=== PATIENT | female | born 1945 | race Caucasian/White ===

== ENCOUNTER 2019-07-24 01:01 | Outpatient (CLI) | payer MEDICARE, OTHER, SELFPAY ==
--- NOTE | 2019-07-24 16:05 | DI.DEXA_ITS ---
EXAM: XR DEXA BONE DENSITY W/WO TALISHA INDICATION: OSTEOPOROSIS W/O CURRENT PATHOLOGICAL FRACTURE, M81.0, F/U OSTEOPENIA. COMPARISON: No exams were available for comparison FINDINGS: The TALISHA image shows no evidence of compression fractures. The bone mineral density measurements of the lumbar spine correspond to a total T-score of -0.8, in the normal range. Bone mineral density me asurements of the left hip correspond to a total T-score of -1.7 and a femoral neck T-score -2.6, con sistent with osteoporosis. The left forearm bone mineral density measurements correspond to a T-scor e in the distal third of -1.7, in the osteopenic range. IMPRESSION: Normal bone mineral density of the lumbar spine. Osteoporosis of the left hip and osteopenia of left forearm.
== END 2019-07-24 01:21 ==
PROVIDERS: PCP Nurse Practitioner Family; Visit Provider Obstetrics & Gynecology
DX: M81.0 Age-related osteoporosis without current pathological fracture (principal); M85.88 Other specified disorders of bone density and structure, other site
CPT/HCPCS: 77080

== ENCOUNTER 2019-08-20 08:07 | Outpatient (CLI) | payer MEDICARE, OTHER, SELFPAY ==
[2019-08-20 09:47] LABS: TSH (W/Ref FT4) 1.63 uIU/mL (0.36-3.74)
[2019-08-20 13:50] LABS: Anion Gap 10.2 mmol/L (3-11); BUN 9 mg/dL (7-18); CO2 27.8 mmol/L (21.0-32.0); CREATININE 0.65 mg/dL (0.55-1.02); Calcium 9.3 mg/dL (8.5-10.1); Calculated LDL 144 mg/dL; Chloride 100 mmol/L (98-107); Cholesterol 264 mg/dL (<200); Glucose 99 mg/dL (74-106); HDL Cholesterol 99 mg/dL (40-60); Potassium 4.2 mmol/L (3.5-5.1); Sodium 138 mmol/L (136-145); Triglyceride 105 mg/dL (<150)
== END 2019-08-20 08:27 ==
PROVIDERS: PCP Nurse Practitioner Adult Health; Visit Provider Nurse Practitioner Adult Health
DX: M81.0 Age-related osteoporosis without current pathological fracture (principal); Z13.29 Encounter for screening for other suspected endocrine disorder; Z13.1 Encounter for screening for diabetes mellitus; E78.49 Other hyperlipidemia
CPT/HCPCS: 36415; 80048; 80061; 84443

== ENCOUNTER → 2022-07-28 02:46 | Outpatient (CLI) | payer MEDICARE, OTHER, SELFPAY ==
--- NOTE | 2022-07-28 | DI.DEXA_ITS ---
Exam(s) XR DEXA BONE DENSITY W/WO TALISHA EXAM: XR DEXA BONE DENSITY W/WO TALISHA CLINICAL HISTORY: F/U OSTEOPOROSIS, M81.0 TECHNIQUE: COMPARISON: CR XR DEXA BONE DENSITY W/WO TALISHA from 07/24/2019 FINDINGS: DEXA scan was performed according to the usual protocol. Please see the accompanying data sheets. Findings for left hip scanning are T-score -1.5 with left femoral neck T-score -2.6. Prior examinati on July 2019 showed left hip T-score -1.7. Lumbar spine scanning shows T-score -0.5, prior examination of 2018 showed lumbar T-score -0.8. Left forearm scanning shows T-score -2.0, prior examination of 2016 showed T-score -1.7. IMPRESSION: Measurements are consistent with osteoporosis according to the WHO criteria. The lateral vertebral s canogram shows no evidence of a vertebral compression fracture. RADIATION DOSE DELIVERED: Total DLP
== END ==
PROVIDERS: PCP Nurse Practitioner Adult Health; Visit Provider Obstetrics & Gynecology
DX: M81.0 Age-related osteoporosis without current pathological fracture (principal)
CPT/HCPCS: 77080

== ENCOUNTER 2022-10-25 11:41 | Day surgery (SDC) | payer MEDICARE, OTHER, SELFPAY ==
[2022-10-25 11:44] VITALS: BP 158/68; PULSE 78; RESP 16; TEMP 36.5; O2SAT 98
[2022-10-25] MEDS: Tropicam./Phenyleph. (1/2.5%) 5 ML BTL OD ×3 (11:56→12:04)
--- NOTE | 2022-10-25 12:07 | W.ANESPRE ---
General Info Date of Service Date Performed: 10/25/22 Height: 5 ft 4 in Weight: 53.8 kg Body Mass Index (BMI): 20.3 Surgical Procedure: Operation Date: 10/25/22 12:55 Proposed Procedure Side Surgeon p Cataract Extraction with IOL Implant w/ISTENT Right Jose Gómez MD Meds Allergies and Home Medications Allergies Allergy/AdvReac Type Severity Reaction Status Date / Time No Known Allergies Allergy Unverified 10/25/22 11:25 Home Medication Medication Instructions Recorded multivitamin (Daily Multi-Vitamin 1 ea PO DAILY 01/20/18 tablet) calcium 166.75 mg-vit D3 166.75 166.75 mg PO DAILY 01/23/18 unit-vit C-vit K2-minerals capsule (Bone Essentials) cholecalciferol (vitamin D3) 75 3,000 unit PO DAILY 01/23/18 mcg (3,000 unit) tablet aspirin 325 mg tablet 325 mg PO DAILY 03/24/18 Current Visit Medications: Current Medications Generic Name Dose Route Start Last Admin Trade Name Freq PRN Reason Stop Dose Admin Acetaminophen 1,000 mg 10/25/22 06:00 Acetaminophen 500 Mg Tab PO Q4H PRN PRN Miscellaneous Medication 0 ml 10/25/22 06:00 10/25/22 12:04 Tropicam./Phenyleph. (1/2.5%) 5 Ml Btl OD 1 drp DIRECTED QUINTIN Administration Miscellaneous Medication 0 ml 10/25/22 06:00 Prednisolone 1%, Moxifloxacin 0.5%, Nepafenac 0.1% 5ml Btl OD DIRECTED QUINTIN Tetracaine HCl 0 ml 10/25/22 06:00 Tetracaine 0.5% 4 Ml Btl OD DIRECTED QUINTIN PFSH Active Problems Active Problems: Problem Status Onset Code Cortical cataract of right eye H26.9 Nuclear age-related cataract, right eye H25.11 Elevated BP without diagnosis of hypertension R03.0 Cataracts, bilateral H26.9 Hyperlipidemia E78.5 Age-related osteoporosis without current pathological fracture 12/22/17 M81.0 Medical History Medical History Dyspareunia in female (12/22/17) Resolved with arrangement with Low back pain (12/22/17) PT, daily exercises maintains Scoliosis Surgical History Surgical History Appendectomy Colonoscopy - MAC 2007 Colonoscopy MAC (04/11/18) Dental root implant present (~2014) x2 Tobacco Smoking/Tobacco Use Status: Former Tobacco Use Alcohol Alcohol Intake: never Substance Use Substance use: Never Substance use type: does not use Prental History History Para 0 Hx # Term Pregnancies Multiple births Hx # Pregnancies Ectopic pregnancies AB induced Hx Number of Living Children AB spontaneous Vital Signs and Lab Results Vital Signs Most Recent Vital Signs in EMR: Most Recent Vital Signs Temp Pulse Resp BP Pulse Ox 36.5 C 78 16 158/68 H 98 10/25/22 11:44 10/25/22 11:44 10/25/22 11:44 10/25/22 11:44 10/25/22 11:44 Lab Results Blood Type / Crossmatch: No Data to Display Complete Blood Count: No Data to Display Complete Metabolic Panel: No Data to Display Liver Function Panel: No Data to Display Coagulation Panel: No Data to Display Cardiac Panel: No Data to Display Arterial Blood Gas: No Data to Display Venous Blood Gas: No Data to Display Pancreas Panel: No Data to Display Thyroid Panel: No Data to Display Infectious Disease: No Data to Display Blood Cultures: No Data to Display Toxicology Panel: No Data to Display Anesthesia Assessment and Plan Anesthesia History Personal History: No History of Anesthesia Complications Family History: No Family History of Anesthesia Complications Exercise Tolerance Exercise Tolerance: Metabolic Equivalents>4 Pertinent Negatives Pertinent Negatives: No Symptoms of GERD, No Major Cardiovascular Symptoms or Complaints, No Major Pulmonary Symptoms or Complaints and No History of CVA/TIA Cardiac & Pulmonary Exam Cardiac Exam: Normal S1/S2 Heart Sounds Pulmonary Exam: Clear Bilateral Breath Sounds Implantable Cardiac Device Does patient have a Pacemaker or an ICD?: No Airway Exam Known Difficult Airway: No Mallampati Class: 1 Mouth Opening: Normal (> 3cm) Thyromental Distance: Greater than 3 cm Neck Range of Motion: Full ROM Neck Circumference: Normal Teeth Condition: Normal Dentition ASA Classification ASA Score: ASA 2 Emergency Case?: No NPO Status NPO Status: NPO Clears >2 hours, Solids >8 hours Anesthesia Plan Resuscitation Status: Full Code Anesthesia Technique: MAC Anesthesia Airway Planned: Natural Airway Monitors Used: Standard Monitors
[2022-10-25 12:09] VITALS: BMI 20.3
[2022-10-25] MEDS: Tetracaine 0.5% 4 ML BTL OD (13:14)
[2022-10-25] MEDS: Balanced Salt Soln.-PLUS 500 ML BAG (13:28)
[2022-10-25] MEDS: Lidocaine 1% Pres-Free 5 ML VIAL (13:29)
[2022-10-25] MEDS: Povidone-Iodine Ophth 30 ML BTL (13:30)
[2022-10-25] MEDS: Phenylephrine/Lidocaine (15/10) MG/ML 1 ML VIAL (13:30)
[2022-10-25] MEDS: Duovisc Viscoelastic System EACH 1 EACH (13:31)
--- NOTE | 2022-10-25 13:54 | W.PM.DSUDISC ---
Date of service: 10/25/22 Time of Service: 13:54 Discharge Plan Disposition Patient Disposition: Home Discharge Details Attending Provider: Jose Gómez Primary Care Provider: Daja Mancilla Home Meds and New Rx's Prescriptions: No Action multivitamin [Daily Multi-Vitamin] 1 EACH tablet 1 ea PO DAILY cholecalciferol (vitamin D3) 3,000 UNIT tablet 3,000 unit PO DAILY Bone Essentials 166.75 MG capsule 166.75 mg PO DAILY aspirin 325 MG tablet 325 mg PO DAILY Discharge Instructions Stand Alone Forms: Post-op Topical Cataract, Colleen Sheffield (DSU) Discharge Orders Discharge Orders: Discharge Order (Routine); Ordered 10/25/22 Ordered By: Jose Gómez DS: Diagnosis Discharge Diagnosis (1) Cortical cataract of right eye: Status: Resolved (2) Nuclear age-related cataract, right eye: Status: Resolved (3) Primary open angle glaucoma (POAG) of right eye, mild stage: Status: Chronic
[2022-10-25 13:55] VITALS: BP 107/71; PULSE 68; RESP 16; TEMP 36.7; O2SAT 99
--- NOTE | 2022-10-25 13:57 | W.PM.OP ---
Date of service: 10/25/22 Time of Service: 13:57 Operative Note Operative Note DATE OF PROCEDURE: 10/25/22 PRE-OP DIAGNOSIS: Nuclear/cortical cataract, right eye Primary open-angle glaucoma, right eye, mild stage POST-OP DIAGNOSIS: same PROCEDURE: 1. Cataract extraction using phacoemulsification with intraocular lens implant, right eye 2. Insertion of multiple anterior segment aqueous drainage devices (Glaukos iStent inject x 2) into trabecular meshwork, right eye SURGEON: Jose Gómez ANESTHESIA TYPE: Local By Surgeon and MAC Refer to Anesthesia Record PATHOLOGY: none sent COMPLICATIONS: None Patient was transported to: same day Patient's condition: stable Implants: 1. [employer] Vision Tecnis Eyhance DIB00 intraocular lens 2. Glaukos iStent inject trabecular micro-bypass stent x 2 Indications: 1. Progressive decreased vision due to cataract, right eye 2. Primary open angle glaucoma, right eye Procedure Description: CATARACT SURGERY OPERATIVE REPORT PREOPERATIVE DIAGNOSIS: Nuclear/cortical cataract, right eye Primary open-angle glaucoma, right eye, mild stage POSTOPERATIVE DIAGNOSIS: Same OPERATION: 1. Cataract extraction using phacoemulsification with posterior chamber intraocular lens implant, right eye. 2. Insertion of multiple anterior segment aqueous drainage devices (Glaukos iStent inject x 2) into trabecular meshwork, right eye IOL: IOL Import Export Agent/Model: [employer] Tecnis Eyhance DIB00 IOL Power: + 21.0 diopters IOL Serial Number: [id number] Optic Diameter: 6.0mm Haptic/Overall Diameter: 13.0mm PHACO INFO: Lopez [employer]ion Vision System with OZil and Active Fluidics Cumulative Dispersed Energy (CDE): 5.77 seconds TRABECULAR MICRO-BYPASS STENT INFO: Glaukos iStent inject x 2 Reference Number: G2-[id number] Serial Number: [id number] US [id number] SURGEON: Jose Gómez MD, KAEL ANESTHESIA: Monitored Anesthesia Care (MAC), with local sub-tenon's anesthetic infiltration COMPLICATIONS: None SPECIMENS: None INDICATIONS FOR PROCEDURE: The patient is a 76-year-old lady with history of significant a stigmatism of the right eye as well as mild primary open-angle glaucoma. She has developed a symptomatic nuclear/cortical cataract in the right eye. The option of cataract surgery was offered to the patient and she felt she was symptomatic enough that she wished to proceed. In addition, she desired glaucoma stent procedure to reduce intraocular pressure and dependency on topical medication. PROCEDURE: The correct surgical eye was identified and marked as the right eye and the pupil was dilated in the preoperative area using mydriatics and cycloplegics. The dilated pupil size was 6.0 mm. Oral sedation was administered in the form of an Imprimis MKO Melt (midazolam 3mg/ketamine 25mg/ondansetron 2mg). The patient was brought to the operating room where cardiopulmonary monitoring was instituted and surgical time-out was performed, confirming the correct operative eye and IOL power. Topical anesthesia was administered and ophthalmic povidone-iodine 5% was instilled into the conjunctival fornices. Lidocaine gel was applied to the cornea and the america-ocular area was prepped with Betadine 10% solution and draped in the usual sterile fashion for intraocular surgery, including an aperture drape. A Tegaderm transparent film dressing was cut in half and used to cover the lashes and lid margins. Care was taken to sequester the lashes and lid margins under the Tegaderm dressing. A lid speculum was placed between the lids of the operative eye and the Lopez Lux[employer] Revalia operating microscope was maneuvered into position. Harman scissors were then used to make a conjunctival buttonhole approximately 6mm posterior to the limbus in the inferonasal quadrant. Blunt dissection was carried out to expose bare sclera, and a blunt-tipped sub-tenon?s anesthesia cannula was introduced and passed posteriorly along the globe where non-preserved plain lidocaine was injected into posterior sub-Tenon?s space. A sideport knife was used to make a paracentesis port inferiortemporally. Intraocular phenylephrine/lidocaine was injected into the anterior chamber. The anterior chamber was then filled with viscoelastic. A 2.4mm keratome knife was used to construct a 2-plane near-clear corneal tunnel extending 2.0mm into clear cornea superiortemporally. . A flap was raised on the anterior capsule and capsulorhexis forceps were used to complete a continuous curvilinear capsulorhexis of 5.0 mm. Balanced salt solution was then used to perform cortical cleaving hydrodissection and nuclear hydrodelineation until the lens could be freely rotated within the capsular bag. The lens nucleus was then disassembled and removed within the capsular bag and iris plane using phacoemulsification. Residual cortical material was removed using the 45-degree angled silicone I/A tip with 0.3mm port. The posterior capsule was carefully polished to remove as much residual lens epithelial cells as safely possible. The capsular bag was then inflated and the anterior chamber deepened with viscoelastic. The lens implant described above was inserted into the capsular bag using the ILEANA Melcher [place] Injector. A Kuglen hook was used to dial the IOL into position. The anterior chamber was then slightly over-filled with viscoelastic. The microsope and the patient's head were tilted into the ideal position for viewing of the anterior chamber angle. Viscoelastic was placed on the cornea followed by a surgical gonionlens, and the anterior chamber angle landmarks were identified. The [employer] iStent inject handpiece was introduced into the anterior chamber and the insertion sleeve was retracted once the injector was distal to the pupillary margin. The trocar was advanced through the central portion of the trabecular meshwork and into the back wall of Schlemm's canal in the inferonasal quadrant, with care taken to ensure the micro-insertion tube was perpendicular to the trabecular meshwork. The trabecular meshwork was lightly dimpled and the stent was injected without difficulty. The same procedure was then performed in the superiornasal quadrant. Both stents were then examined and noted to be in good position within the trabecular meshwork. The microscope and the patients head were returned to the normal coaxial position. Viscoelatic was then removed from the anterior chamber using the I/A handpiece. The lens implant was noted to center nicely within the capsular bag. The incisions were stromally hydrated, and the anterior chamber was reformed using BSS. Then 0.5cc of moxifloxacin 1.0mg/ml were injected into the capsular bag and anterior chamber. The incisions were checked with a Weck spear and found to be secure. Several drops of ophthalmic povidone-iodine 5% were then applied to the eye followed by two drops of Imprimis combination prednisolone/moxifloxacin/nepafenac solution. The drapes were removed and a clear plastic protective eye shield was placed over the eye. The patient was then returned to Same Day Surgery in stable condition.
[2022-10-25 14:22] VITALS: BP 124/66; PULSE 65; RESP 16; TEMP 36.9; O2SAT 98
--- NOTE | 2022-10-25 14:42 | W.ANESPOSTOP ---
Postoperative Evaluation Date, Time and Location Date Performed: 10/25/22 Time Performed: 14:22 Patient Location: Day Surgery Unit Vital Signs Most Recent Imported Vital Signs: Most Recent Vital Signs Temp Pulse Resp BP Pulse Ox 36.9 C 65 16 124/66 98 10/25/22 14:22 10/25/22 14:22 10/25/22 14:22 10/25/22 14:22 10/25/22 14:22 Pain Score Most Recent Pain Score: Most Recent Pain Score Pain Level 0 10/25/22 14:22 Assessment Mental Status: Awake (Alert & Oriented to Patient Baseline) Airway and Respiratory Function: Patent airway with normal (patient baseline) respiratory exam Cardiovascular Function: Hemodynamically Stable Hydration Status: Adequately Hydrated Nausea & Vomiting: No Nausea or Vomiting Pain: Pt. Denies Any Pain Peripheral Nerve Block: Patient did not receive a nerve block
== END 2022-10-25 14:25 | disposition home or self-care (01) ==
LOC: SUR 11:41
PROVIDERS: PCP Nurse Practitioner Adult Health; Visit Provider Ophthalmology
PROC: (CPT 66991; principal; 2022-10-25 12:45)
DX: H25.11 Age-related nuclear cataract, right eye (principal); H40.1111 Primary open-angle glaucoma, right eye, mild stage
CPT/HCPCS: 66991; V2632; C1783

== ENCOUNTER 2022-11-08 11:08 | Day surgery (SDC) | payer MEDICARE, OTHER, SELFPAY ==
[2022-11-08 11:08] VITALS: BP 138/72; PULSE 72; RESP 16; TEMP 36.6; O2SAT 99
--- NOTE | 2022-11-08 11:21 | ANES.PREOP_ITS ---
General Info Date of Service Date Performed: 11/08/22 Height: 5 ft 4 in Weight: 54.4 kg Body Mass Index (BMI): 20.5 Surgical Procedure: Operation Date: 11/08/22 14:40 Proposed Procedure Side Surgeon p Cataract Extraction with IOL Implant w/Glaucoma Stent Left Jose Gómez MD Meds Allergies and Home Medications Allergies Allergy/AdvReac Type Severity Reaction Status Date / Time No Known Allergies Allergy Unverified 11/08/22 10:41 Home Medication Medication Instructions Recorded multivitamin (Daily Multi-Vitamin 1 ea PO DAILY 01/20/18 tablet) calcium 166.75 mg-vit D3 166.75 166.75 mg PO DAILY 01/23/18 unit-vit C-vit K2-minerals capsule (Bone Essentials) cholecalciferol (vitamin D3) 75 3,000 unit PO DAILY 01/23/18 mcg (3,000 unit) tablet aspirin 325 mg tablet 325 mg PO DAILY 03/24/18 Current Visit Medications: Current Medications Generic Name Dose Route Start Last Admin Trade Name Freq PRN Reason Stop Dose Admin Acetaminophen 1,000 mg 11/08/22 06:00 Acetaminophen 500 Mg Tab PO Q4H PRN PRN Miscellaneous Medication 0 ml 11/08/22 10:00 Tropicam./Phenyleph. (1/2.5%) 10 Ml Btl OS DIRECTED [facility] Miscellaneous Medication 0 ml 11/08/22 06:00 Prednisolone 1%, Moxifloxacin 0.5%, Nepafenac 0.1% 5ml Btl OS DIRECTED [facility] Tetracaine HCl 0 ml 11/08/22 06:00 Tetracaine 0.5% 4 Ml Btl OS DIRECTED [facility] Active Problems Active Problems: Problem Status Onset Code Age-related osteoporosis without current pathological fracture 12/22/17 M81.0 Hyperlipidemia E78.5 Cataracts, bilateral H26.9 Elevated BP without diagnosis of hypertension R03.0 Nuclear age-related cataract, right eye H25.11 Cortical cataract of right eye H26.9 Primary open angle glaucoma (POAG) of right eye, mild stage H40.1111 Medical History Medical History Dyspareunia in female (12/22/17) Resolved with arrangement with Low back pain (12/22/17) PT, daily exercises maintains Scoliosis Surgical History Surgical History Appendectomy Colonoscopy - MAC 2006 Colonoscopy MAC (04/11/18) Dental root implant present (~2014) x2 History of cataract surgery Tobacco Smoking/Tobacco Use Status: Former Tobacco Use Alcohol Alcohol Intake: never Substance Use Substance use: Never Substance use type: does not use Prental History History Para 0 Hx # Term Pregnancies Multiple births Hx # Pregnancies Ectopic pregnancies AB induced Hx Number of Living Children AB spontaneous Vital Signs and Lab Results Vital Signs Most Recent Vital Signs in EMR: Most Recent Vital Signs Temp Pulse Resp BP Pulse Ox 36.6 C 72 16 138/72 99 11/08/22 11:08 11/08/22 11:08 11/08/22 11:08 11/08/22 11:08 11/08/22 11:08 Lab Results Blood Type / Crossmatch: No Data to Display Complete Blood Count: No Data to Display Complete Metabolic Panel: No Data to Display Liver Function Panel: No Data to Display Coagulation Panel: No Data to Display Cardiac Panel: No Data to Display Arterial Blood Gas: No Data to Display Venous Blood Gas: No Data to Display Pancreas Panel: No Data to Display Thyroid Panel: No Data to Display Infectious Disease: No Data to Display Blood Cultures: No Data to Display Toxicology Panel: No Data to Display Anesthesia Assessment and Plan Anesthesia History Personal History: No History of Anesthesia Complications Family History: No Family History of Anesthesia Complications Exercise Tolerance Exercise Tolerance: Metabolic Equivalents>4 Pertinent Negatives Pertinent Negatives: No Symptoms of GERD, No Major Cardiovascular Symptoms or Complaints, No Major Pulmonary Symptoms or Complaints and No History of CVA/TIA Cardiac & Pulmonary Exam Cardiac Exam: Normal S1/S2 Heart Sounds Pulmonary Exam: Clear Bilateral Breath Sounds Implantable Cardiac Device Does patient have a Pacemaker or an ICD?: No Airway Exam Known Difficult Airway: No Mallampati Class: 1 Mouth Opening: Normal (> 3cm) Thyromental Distance: Greater than 3 cm Neck Range of Motion: Full ROM Neck Circumference: Normal Teeth Condition: Normal Dentition ASA Classification ASA Score: ASA 2 Emergency Case?: No NPO Status NPO Status: NPO Clears >2 hours, Solids >8 hours Anesthesia Plan Resuscitation Status: Full Code Anesthesia Technique: MAC Anesthesia Airway Planned: Natural Airway Monitors Used: Standard Monitors
[2022-11-08 11:37] VITALS: BMI 20.5
[2022-11-08] MEDS: Tetracaine 0.5% 4 ML BTL OS (12:41)
[2022-11-08] MEDS: Balanced Salt Soln.-PLUS 500 ML BAG (12:42)
[2022-11-08] MEDS: Lidocaine 1% Pres-Free 5 ML VIAL (12:42)
[2022-11-08] MEDS: Duovisc Viscoelastic System EACH 1 EACH (12:43)
[2022-11-08] MEDS: Phenylephrine/Lidocaine (15/10) MG/ML 1 ML VIAL (12:43)
[2022-11-08] MEDS: Povidone-Iodine Ophth 30 ML BTL (12:43)
[2022-11-08 13:00] VITALS: BP 111/88; PULSE 72; RESP 16; TEMP 36.6; O2SAT 99
--- NOTE | 2022-11-08 13:03 | W.PM.DSUDISC ---
Date of service: 11/08/22 Time of Service: 13:03 Discharge Plan Disposition Patient Disposition: Home Discharge Details Attending Provider: Jose Gómez Primary Care Provider: Daja Mancilla Home Meds and New Rx's Prescriptions: No Action multivitamin [Daily Multi-Vitamin] 1 EACH tablet 1 ea PO DAILY cholecalciferol (vitamin D3) 3,000 UNIT tablet 3,000 unit PO DAILY Bone Essentials 166.75 MG capsule 166.75 mg PO DAILY aspirin 325 MG tablet 325 mg PO DAILY Discharge Instructions Stand Alone Forms: Post-op Topical Cataract, Colleen Sheffield (DSU) Discharge Orders Discharge Orders: Discharge Order (Routine); Ordered 11/08/22 Ordered By: Jose Gómez DS: Diagnosis Discharge Diagnosis (1) Nuclear age-related cataract, left eye: Status: Resolved (2) Cortical cataract of left eye: Status: Resolved (3) Primary open angle glaucoma (POAG) of left eye, mild stage: Status: Chronic
--- NOTE | 2022-11-08 13:05 | ROE_ITS ---
Date of service: 11/08/22 Time of Service: 13:05 Operative Note Operative Note DATE OF PROCEDURE: 11/08/22 PRE-OP DIAGNOSIS: Nuclear/cortical cataract, left eye Primary open-angle glaucoma, left eye, mild stage PROCEDURE: 1. Cataract extraction using phacoemulsification with intraocular lens implant, left eye 2. Insertion of multiple anterior segment aqueous drainage devices (Glaukos iStent inject x 2) into trabecular meshwork, left eye SURGEON: Jose Gómez ANESTHESIA TYPE: Local By Surgeon and MAC Refer to Anesthesia Record ESTIMATED BLOOD LOSS: 0 PATHOLOGY: none sent COMPLICATIONS: None Patient was transported to: same day Patient's condition: stable Implants: 1. [employer] / [employer] Tecnis Eyhance DIB00 intraocular lens 2. Glaukos iStent inject trabecular micro-bypass stent x 2 Indications: 1. Progressive decreased vision due to cataract, left eye 2. Primary open angle glaucoma, left eye Procedure Description: CATARACT SURGERY OPERATIVE REPORT PREOPERATIVE DIAGNOSIS: Nuclear/cortical cataract, left eye Primary open-angle glaucoma, mild stage, left eye POSTOPERATIVE DIAGNOSIS: Same OPERATION: 1. Cataract extraction using phacoemulsification with posterior chamber intraocular lens implant, left eye. 2. Insertion of multiple anterior segment aqueous drainage devices (Glaukos iStent inject x 2) into trabecular meshwork, left eye IOL: IOL Residential Therapist/Model: [employer] Tecnis Eyhance DIB00 IOL Power: + 17.5 diopters IOL Serial Number: [id number] Optic Diameter: 6.0mm Haptic/Overall Diameter: 13.0mm PHACO INFO: [employer] Vision System with OZil and Active [employer]uidics Cumulative Dispersed Energy (CDE): 7.28 seconds TRABECULAR MICRO-BYPASS STENT INFO: Glaukos iStent inject x 2 Reference Number: [id number] Serial Number: [id number] SURGEON: Jose Gómez MD, KAEL ANESTHESIA: Monitored Anesthesia Care (MAC), with local sub-tenon's anesthetic infiltration COMPLICATIONS: None SPECIMENS: None INDICATIONS FOR PROCEDURE: The patient is a 76-year-old lady with history of progressive decreased vision in both eyes secondary to the development of bilateral nuclear/cortical cataract. She also has a history of open-angle glaucoma, mild stage, managed on 1 topical medication. She is significantly symptomatic from cataract that she desires cataract surgery and attempt to improve and maximize her vision. She has already undergone cataract surgery with glaucoma stent implantation of the right eye, she now presents for the same procedure in the left eye. PROCEDURE: The correct surgical eye was identified and marked as the left eye and the pupil was dilated in the preoperative area using mydriatics and cyclople gics. The dilated pupil size was 6.0 mm. Oral sedation was administered in the form of an Imprimis MKO Melt (midazolam 3mg/ketamine 25mg/ondansetron 2mg). The patient was brought to the operating room where cardiopulmonary monitoring was instituted and surgical time-out was performed, confirming the correct operative eye and IOL power. Topical anesthesia was administered and ophthalmic povidone-iodine 5% was instilled into the conjunctival fornices. Lidocaine gel was applied to the cornea and the america-ocular area was prepped with Betadine 10% solution and draped in the usual sterile fashion for intraocular surgery, including an aperture drape. A Tegaderm transparent film dressing was cut in half and used to cover the lashes and lid margins. Care was taken to sequester the lashes and lid margins under the Tegaderm dressing. A lid speculum was placed between the lids of the operative eye and the [employer] operating microscope was maneuvered into position. Harman scissors were then used to make a conjunctival buttonhole approximately 6mm posterior to the limbus in the inferonasal quadrant. Blunt dissection was carried out to expose bare sclera, and a blunt-tipped sub-tenon?s anesthesia cannula was introduced and passed posteriorly along the globe where non- preserved plain lidocaine was injected into posterior sub-Tenon?s space. A sideport knife was used to make a paracentesis port superior/superiortemporally. Intraocular phenylephrine/lidocaine was injected into the anterior chamber. The anterior chamber was then filled with viscoelastic. A 2.4mm keratome knife was used to create a half-thickness groove at the limbus and then to construct a three-plane near-clear corneal tunnel extending 2.0mm into clear cornea in the temporal position. . A flap was raised on the anterior capsule and capsulorhexis forceps were used to complete a continuous curvilinear capsulorhexis of 5.0 mm. Balanced salt solution was then used to perform cortical cleaving hy drodissection and nuclear hydrodelineation until the lens could be freely rotated within the capsular bag. The lens nucleus was then disassembled and removed within the capsular bag and iris plane using phacoemulsification. Residual cortical material was removed using the 45-degree angled silicone I/A tip with 0.3mm port. The posterior capsule was carefully polished to remove as much residual lens epithelial cells as safely possible. The capsular bag was then inflated and the anterior chamber deepened with viscoelastic. The lens implant described above was inserted into the capsular bag using the [employer] simplicity injector. A Kuglen hook was used to dial the IOL into position. The anterior chamber was then slightly over-filled with viscoelastic. The microsope and the patient's head were tilted into the ideal position for viewing of the anterior chamber angle. Viscoelastic was placed on the cornea followed by a surgical gonionlens, and the anterior chamber angle landmarks were identified. The Jambo iStent inject handpiece was introduced into the anterior chamber and the insertion sleeve was retracted once the injector was distal to the pupillary margin. The trocar was advanced through the central portion of the trabecular meshwork and into the back wall of Schlemm's canal in the superiornasal quadrant, with care taken to ensure the micro-insertion tube was perpendicular to the trabecular meshwork. The trabecular meshwork was lightly dimpled and the stent was injected without difficulty. The same procedure was then performed in the inferiornasal quradrant. Both stents were then examined and noted to be in good position within the trabecular meshwork. The microscope and the patients head were returned to the normal coaxial position. Viscoelatic was then removed from the anterior chamber using the I/A handpiece. The lens implant was noted to center nicely within the capsular bag. The incisions were stromally hydrated, and the anterior chamber was reformed using BSS. Then 0.5cc of moxifloxacin 1.0mg/ml were injected into the capsular bag and anterior chamber. The incisions were checked with a Weck spear and found to be secure. Several drops of ophthalmic povidone-iodine 5% were then applied to the eye followed by two drops of Imprimis combination prednisolone/moxifloxacin/nepafenac solution. The drapes were removed and a clear plastic protective eye shield was placed over the eye. The patient was then returned to Same Day Surgery in stable condition.
--- NOTE | 2022-11-08 13:24 | W.ANESPOSTOP ---
Postoperative Evaluation Date, Time and Location Date Performed: 11/08/22 Time Performed: 13:24 Patient Location: Day Surgery Unit Vital Signs Most Recent Imported Vital Signs: Most Recent Vital Signs Temp Pulse Resp BP Pulse Ox 36.6 C 72 16 111/88 99 11/08/22 13:00 11/08/22 13:00 11/08/22 13:00 11/08/22 13:00 11/08/22 13:00 Pain Score Most Recent Pain Score: Most Recent Pain Score Pain Level 0 11/08/22 13:00 Assessment Mental Status: Awake (Alert & Oriented to Patient Baseline) Airway and Respiratory Function: Patent airway with normal (patient baseline) respiratory exam Cardiovascular Function: Hemodynamically Stable Hydration Status: Adequately Hydrated Nausea & Vomiting: No Nausea or Vomiting Pain: Pt. Denies Any Pain Peripheral Nerve Block: Other (Local in eye by Dr. Gómez)
[2022-11-08 13:30] VITALS: BP 151/68; PULSE 62; RESP 16; TEMP 36.4; O2SAT 100
== END 2022-11-08 13:38 | disposition home or self-care (01) ==
LOC: SUR 11:08
PROVIDERS: PCP Nurse Practitioner Adult Health; Visit Provider Ophthalmology
PROC: (CPT 66991; principal; 2022-11-08 14:30)
DX: H25.12 Age-related nuclear cataract, left eye (principal); H40.1121 Primary open-angle glaucoma, left eye, mild stage; Z98.41 Cataract extraction status, right eye; I10 Essential (primary) hypertension
CPT/HCPCS: 66991; V2632; C1783

== ENCOUNTER 2023-10-10 04:48 | Outpatient (CLI) | payer MEDICARE, OTHER, SELFPAY ==
[2023-10-10 08:03] LABS: ALT 39 U/L (14-59); AST 24 U/L (15-37); Albumin 3.7 g/dL (3.4-5.0); Alkaline Phosphatase 80 U/L (46-116); Anion Gap 8.3 mmol/L (3-11); BUN 18 mg/dL (7-18); Bilirubin, Total 0.3 mg/dL (0.2-1.0); CO2 28.7 mmol/L (21.0-32.0); CREATININE 0.6 mg/dL (0.55-1.02); Calcium 9.7 mg/dL (8.5-10.1); Calculated LDL 142 mg/dL (<100); Chloride 100 mmol/L (98-107); Cholesterol 258 mg/dL (<200); Estimated GFR 92.97 (mL/min/1.73m2); Glucose 107 mg/dL (74-106); HDL Cholesterol 108 mg/dL (40-60); Potassium 3.8 mmol/L (3.5-5.1); Sodium 137 mmol/L (136-145); Total Protein 7.5 g/dL (6.4-8.2); Triglyceride 41 mg/dL (<150)
== END 2023-10-10 04:49 | disposition home or self-care (01) ==
LOC: LBO 04:48
PROVIDERS: PCP Nurse Practitioner Adult Health; Referring Provider Nurse Practitioner Adult Health; Visit Provider Nurse Practitioner Adult Health
DX: Z13.1 Encounter for screening for diabetes mellitus (principal); E78.5 Hyperlipidemia, unspecified; Z13.220 Encounter for screening for lipoid disorders
CPT/HCPCS: 36415; 80053; 80061

== ENCOUNTER 2024-02-03 08:58 | Outpatient (REF) | payer MEDICARE, OTHER, SELFPAY ==
[2024-02-03 13:42] LABS: C Diff PCR Negative (Negative)
[2024-02-04 13:58] LABS: Campylobacter PCR Negative (Negative); Salmonella PCR Negative (Negative); Shiga Toxin PCR Negative (Negative); Shigella/Enteroinvasive Ecoli Negative (Negative)
[2024-02-06 19:39] LABS: Calprotectin 228 mcg/g
== END 2024-02-03 08:59 | disposition home or self-care (01) ==
LOC: LBN 08:58
PROVIDERS: PCP Nurse Practitioner Adult Health; Visit Provider Nurse Practitioner Adult Health
DX: R19.7 Diarrhea, unspecified (principal)
CPT/HCPCS: 87329; 87493; 87505; 82272; 83993

== ENCOUNTER 2025-01-02 03:27 | Outpatient (CLI) | payer MEDICARE, OTHER, SELFPAY ==
[2025-01-02 07:55] LABS: Anion Gap 6.7 mmol/L (3-11); BUN 18 mg/dL (7-18); CO2 29.3 mmol/L (21.0-32.0); CREATININE 0.7 mg/dL (0.55-1.02); Calcium 9.5 mg/dL (8.5-10.1); Calculated LDL 182 mg/dL (<100); Chloride 102 mmol/L (98-107); Cholesterol 283 mg/dL (<200); Estimated GFR 88.47 (mL/min/1.73m2); Glucose 105 mg/dL (74-106); HDL Cholesterol 91 mg/dL (>or=50); Potassium 3.8 mmol/L (3.5-5.1); Sodium 138 mmol/L (136-145); Triglyceride 50 mg/dL (<150)
[2025-01-02 07:59] LABS: Hemoglobin A1C 5.3 % (<5.7)
== END 2025-01-02 03:28 | disposition home or self-care (01) ==
PROVIDERS: PCP Nurse Practitioner Adult Health; Referring Provider Nurse Practitioner Adult Health; Visit Provider Nurse Practitioner Adult Health
DX: R73.01 Impaired fasting glucose (principal); E78.5 Hyperlipidemia, unspecified
CPT/HCPCS: 36415; 80048; 80061; 83036